=== PATIENT | male | born 1955 | race Caucasian/White ===

== ENCOUNTER → 2019-05-08 16:33 | Emergency (ER) | payer BC ==
[~2019-05-08 16:33] MED LIST: Iodixanol* (CONTRAST) 320 MG/ML 100 ML SDV IV ONE; Morphine 4 MG/ML VIAL (1 ml) 4 MG/ML VIAL IV ONE; NS 0.9% 1000 ML** 1,000 ML IV ONE; Ondansetron INJ* 2 MG/ML VIAL IV ONE
--- NOTE | 2019-05-08 16:46 | ED ---
Upper Extremity Pain - HPI Summary HPI Summary: 63 year old M [place] [facility] accompanied by complains of right collar pain after [place]. Symptoms aggravated by movement and twisting. Symptoms alleviated by nothing. Patient reports right shoulder pain and right-sided neck pain. Patient denies back pain , abdominal pain, head pain. - History of Current Complaint Chief Complaint: EDTraumaMultiple Stated Complaint: RT SHOULDER INJURY PER PT Hx Obtained From: Patient Mechanism Of Injury: Other - after jumping 40 [place] Onset/Duration: Started Minutes Ago, Still Present Timing: Constant Pain Location: Collar - right, Shoulder - right, Other: - right-sided neck Aggravating Factor(s): Movement, Twisting Alleviating Factor(s): Nothing Associated Signs & Symptoms: Positive: Other - right shoulder pain and right- sided neck pain; NEGATIVE: back pain, abdominal pain, head pain. - Allergies/Home Medications Allergies/Adverse Reactions: Allergies Allergy/AdvReac Type Severity Reaction Status Date / Time No Known Allergies Allergy Verified 05/08/19 16:45 PMH/Surg Hx/FS Hx/Imm Hx Previously Healthy: No Respiratory History: Reports: Hx Asthma Sensory History: Reports: Hx Contacts or Glasses Opthamlomology History: Reports: Hx Contacts or Glasses - Surgical History Surgery Procedure, Year, and Place: hip replacement - Family History Known Family History: Negative: Blood Disorder - Social History Alcohol Use: Rare Hx Substance Use: Yes Substance Use Type: Reports: Marijuana Hx Tobacco Use: Yes Smoking Status (MU): Heavy Every Day Tobacco Smoker Review of Systems Negative: Abdominal Pain Positive: Other - right collar pain, right shoulder pain, right-sided neck pain ; NEG: back pain, abdominal pain, head pain. All Other Systems Reviewed And Are Negative: Yes Physical Exam - Summary Physical Exam Summary: VITAL SIGNS: Reviewed. GENERAL: Patient is a well-developed and nourished MALE who is lying comfortable in the stretcher. Patient is not in any acute respiratory distress. HEAD AND FACE: No signs of trauma. No ecchymosis, hematomas or skull depressions. No sinus tenderness. EYES: PERRLA, EOMI x 2, No injected conjunctiva, no nystagmus. EARS: Hearing grossly intact. Ear canals and tympanic membranes are within normal limits. MOUTH: Oropharynx within normal limits. NECK: Supple, trachea is midline, no adenopathy, no JVD, no carotid bruit, no c- spine tenderness, neck with full ROM. CHEST: Deformity in the right anterior aspect of the chest. The mass is not pulsating. The patient does not have trouble breathing or swallowing. There is no subcutaneous emphysema. LUNGS: Clear to auscultation bilaterally. No wheezing or crackles. CVS: Regular rate and rhythm, S1 and S2 present, no murmurs or gallops appreciated. ABDOMEN: Soft, non-tender. No signs of distention. No rebound no guarding, and no masses palpated. Bowel sounds are normal. EXTREMITIES: FROM in all major joints, no edema, no cyanosis or clubbing. NEURO: Alert and oriented x 3. No acute neurological deficits. Speech is normal and follows commands. SKIN: Dry and warm. The FAST exam is negative Triage Information Reviewed: Yes Vital Signs Reviewed: Yes Diagnostics - Laboratory Result Diagrams: 05/08/19 16:46 05/08/19 16:46 Lab Statement: Any lab studies that have been ordered have been reviewed, and results considered in the medical decision making process. - Radiology CXR Radiology Interpretation Completed By: Radiologist Summary of Radiographic Findings: 1. Stigmata of obstructive lung disease. No traumatic injury or acute pulmonary or cardiac process evident. ED physician has reviewed this report. Right shoulder x-ray Radiology Interpretation Completed By: Radiologist Summary of Radiographic Findings: 1. Unremarkable limited exam without visualized traumatic injury. Full assessment requires an orthogonal view. ED physician has reviewed this report. - EKG 1654 Cardiac Rate: NL - 95 BPM EKG Rhythm: Sinus Rhythm Summary of EKG Findings: Sinus rhythm at [address] elevations. Normal axis. Course/Dx - Course Assessment/Plan: 63 year old M [place] [facility] accompanied by complains of right collar pain after jumping 50 [place] one [place] ago. Symptoms aggravated by movement and twisting. Symptoms alleviated by nothing. Patient reports right shoulder pain and right-sided neck pain. Patient denies back pain, abdominal pain, head pain. Past medical significant for asthma. In the ED course, the patient is complaining of chest pain, right shoulder pain, right neck pain, but denies any abdominal pain or headache. Because of the significance of the jump of 50 feet above the ground, I placed the patient in the collar for immobilization. I did a chest x-ray to rule out pneumothorax. The chest x-ray is negative and at this time, I will transfer the patient to a trauma center. The patient declines any back pain or leg pain. After a few minutes, the patient removed himself the hard collar on the C- spine. He understands the risk of not wearing the C-spine collar. Shoulder x ray IMPRESSION: 1. Unremarkable limited exam without visualized traumatic injury. Full assessment requires an orthogonal view. CXR IMPRESSION: 1. Stigmata of obstructive lung disease. No traumatic injury or acute pulmonary or cardiac process evident. During the patient's stay in the ED, I did multiple assessments on the bulging on the right side of the upper chest that is extending into the neck. It is not increased in size, is not pulsating, the patient is able to swallow, and he is denying any shortness of breath at this point. I discussed the case with Dr. Wood from [facility] who accepted the patient for transfer for further assessment in the trauma center. At this time the patient is hemodynamically stable, he is alert and oriented 3 and he is mentating well. - Diagnoses Provider Diagnoses: Trauma, Chest pain - Physician Notifications Instructed by Provider To: Other - Spoke with Tiffanie from [facility] at 17:10. The patient was accepted to [facility] at 17:[address] Wood. - Critical Care Time Critical Care Time: 30-74 min Discharge - Sign-Out/Discharge Documenting (check all that apply): Patient Departure - Transfer to [facility] Patient Received Moderate/Deep Sedation with Procedure: No - Discharge Plan Condition: Stable Disposition: TRANS HIGHER LVL OF CARE FAC Referrals: No Primary Care Phys,NOPCP [Primary Care Provider] - - Billing Disposition and Condition Condition: STABLE Disposition: Trans Higher Lvl of Care Fac - Attestation Statements Document Initiated by Scribe: Yes Documenting Scribe: Almaz Benitez Provider For Whom Rajesh is Documenting (Include Credential): Duy Encarnacion MD Scribe Attestation: Almaz Zacarias, scribed for Duy Encarnacion MD on 05/08/19 at 1733. Scribe Documentation Reviewed: Yes Provider Attestation: The documentation as recorded by the Almaz garnica accurately reflects the service I personally performed and the decisions made by me, Duy Encarnacion MD Status of Scribe Document: Viewed
[2019-05-08 16:57] LABS: ABS Basophils 0.1 10^3/ul (0-0.2); ABS Eosinophils 0.3 10^3/ul (0-0.6); ABS Lymphocytes 2.3 10^3/ul (1.0-4.8); ABS Monocytes 0.9 10^3/ul (0-0.8); ABS Neutrophils 11.7 10^3/ul (1.5-7.7); Eosinophil % 2.3 %; Hematocrit 50 % (42-52); Hemoglobin 16.9 g/dL (14.0-18.0); Lymphocyte % 15.2 %; Mean Corpuscular HGB Conc 34 g/dL (31-36); Mean Corpuscular Hemoglobin 32 pg (27-31); Mean Corpuscular Volume 94 fL (80-94); Platelet Count 213 10^3/uL (150-450); Red Blood Count 5.27 10^6 /uL (4.18-5.48); Red Cell Distribution Width 14 % (10-15); White Blood Count 15.4 10^3/uL (3.5-10.8)
[2019-05-08 17:13] LABS: Albumin 4.8 g/dL (3.2-5.2); Albumin/Globulin Ratio 1.5 (1-3); BUN/Creatinine Ratio 16.7 (8-20); Calcium 9.9 mg/dL (8.6-10.3); EGFR African American 112.4 (>60); EGFR Non-African American 92.9 (>60); Globulin 3.3 g/dL (2-4); Potassium 3.8 mmol/L (3.5-5.0); Total Bilirubin 0.5 mg/dL (0.2-1.0); Total Protein 8.1 g/dL (6.4-8.9)
[2019-05-08 17:44] VITALS: BP 127/93
== END | disposition short-term general hospital (02) ==
LOC: ED 16:33
DX: R07.9 Chest pain, unspecified (principal); W16.92XA Jumping or diving into unspecified water causing other injury, initial encounter; F17.210 Nicotine dependence, cigarettes, uncomplicated
CPT/HCPCS: 36415; 71045; 80053; 82150; 83605; 85025; 93005; 96361; 96374; 96375; 99284; J2270; J2405